=== PATIENT | female | born 1985 | race Caucasian/White ===

== ENCOUNTER 2016-04-21 13:19 | Emergency (ER) | payer OTHER ==
[2016-04-21] MEDS ORDERED: KETOROLAC TROMETHAMINE 60 MG/2 ML VIAL ONE (16:35)
[2016-04-21] MEDS ORDERED: OXYCODONE HCL 5 MG TABLET ONE (17:19)
== END 2016-04-21 17:48 | disposition home or self-care (01) ==
LOC: ED 13:19
DX: S39.012A Strain of muscle, fascia and tendon of lower back, initial encounter (principal); W10.9XXA Fall (on) (from) unspecified stairs and steps, initial encounter; Y92.9 Unspecified place or not applicable
CPT/HCPCS: 99283 ×2; 96372; A9270; J1885